=== PATIENT | male | born 1975 | race Hispanic/Latino ===

== ENCOUNTER 2021-01-17 06:04 | Emergency (ER) | payer OTHER ==
[~2021-01-17] VITALS: Ht 170.2 cm; Wt 99.8 kg
[2021-01-17] MEDS ORDERED: HYDROCODONE/APAP 5MG-325MG TAB PO ONE ×2 (06:30→15:15)
[2021-01-17] MEDS ORDERED: HYDROCODONE/APAP 5MG-325MG TAB ONE ×2 (06:50→15:40)
[2021-01-17] MEDS ORDERED: IOPAMIDOL 370 MG/ML 200 ML INFUS..BTL INJ ONE (09:11)
[2021-01-17] MEDS ORDERED: SODIUM CHLORIDE 0.9% 50ML 50 ML ONE (09:11)
[2021-01-17] MEDS ORDERED: HYDROCODON-ACE1 EA11 PEG (15:15)
[2021-01-17] MEDS ORDERED: LIDOCAINE1 EAC1 TD (15:21)
[2021-01-17] MEDS ORDERED: IBUPROFEN600 MG PO (15:21)
== END 2021-01-17 16:22 | disposition home or self-care (01) ==
LOC: FSED 06:20
DX: S22.069A Unspecified fracture of T7-T8 vertebra, initial encounter for closed fracture (principal); W11.XXXA Fall on and from ladder, initial encounter; Y93.89 Activity, other specified; Y92.9 Unspecified place or not applicable; E78.00 Pure hypercholesterolemia, unspecified; E78.5 Hyperlipidemia, unspecified; R91.8 Other nonspecific abnormal finding of lung field; Z20.822 Contact with and (suspected) exposure to COVID-19
CPT/HCPCS: 70450; 71260; 72125; 72146; 74177; 80053; 81003; 85025; 99284; Q9967; U0002